=== PATIENT | female | born 1955 | race African-American/Black ===

== ENCOUNTER 2019-03-05 16:24 | Emergency (ER) | payer MEDICAID ==
[~2019-03-05] VITALS: Ht 167.6 cm; Wt 76.0 kg
[2019-03-05 17:01] VITALS: BP 137/66
== END 2019-03-05 21:36 | disposition left against medical advice (07) ==
LOC: ER 16:24
DX: M79.89 Other specified soft tissue disorders (principal); Z53.21 Procedure and treatment not carried out due to patient leaving prior to being seen by health care provider

== ENCOUNTER 2019-03-06 03:36 | Emergency (ER) | payer MEDICAID ==
[~2019-03-06] VITALS: Ht 167.6 cm; Wt 75.1 kg
[2019-03-06] MEDS ORDERED: KETOROLAC 30MG/ML VIAL IM ONE (06:30)
[2019-03-06] MEDS ORDERED: ACETAMINOPHEN 325MG TABLET PO ONE (07:00)
[2019-03-06] MEDS ORDERED: PHENYTOIN SODIUM EXTENDED 100MG CAPSULE PO SCH (09:00)
[2019-03-06] MEDS ORDERED: BENZTROPINE MESYLATE 1MG TABLET PO ONE (09:00)
[2019-03-06] MEDS ORDERED: ARIPIPRAZOLE 10MG TABLET PO ONE (09:15)
[2019-03-06] MEDS ORDERED: ARIPIPRAZOLE 5MG TABLET PO ONE (11:15)
[2019-03-06 14:50] VITALS: BP 136/85
== END 2019-03-06 14:53 | disposition home or self-care (01) ==
LOC: ER 03:36
DX: Z76.0 Encounter for issue of repeat prescription (principal); F31.9 Bipolar disorder, unspecified; G40.909 Epilepsy, unspecified, not intractable, without status epilepticus; R30.0 Dysuria; N89.8 Other specified noninflammatory disorders of vagina; R82.998 Other abnormal findings in urine; F14.10 Cocaine abuse, uncomplicated; Z59.0 Homelessness
CPT/HCPCS: 36415; 80185; 99284; J1885